=== PATIENT | male | born 1975 | race Caucasian/White ===

== ENCOUNTER 2023-07-22 14:32 | Emergency (ER) | payer BC ==
[~2023-07-22] VITALS: Ht 172.7 cm; Wt 86.0 kg
[2023-07-22 14:52] VITALS: BP 131/68; PULSE 72; RESP 16; TEMP 98.7; O2SAT 98
[2023-07-22] MEDS ORDERED: HYDROCODONE/ACETAMINOPHEN 10/325MG TABLET PO ONE (15:45)
[2023-07-22] MEDS ORDERED: HYDR-4001 MT (16:43)
[2023-07-22] MEDS ORDERED: IBUP-1525 MT (16:43)
[2023-07-22] MEDS ORDERED: HYDROCODONE/ACETAMINOPHEN 10/325MG TABLET PO NR (17:44)
== END 2023-07-22 20:33 | disposition home or self-care (01) ==
LOC: ER 15:07
DX: M79.642 Pain in left hand (principal)
CPT/HCPCS: 29125; 73130; 99283